=== PATIENT | female | born 1985 | race Caucasian/White ===

== ENCOUNTER 2020-06-01 14:05 | Emergency (ER) | payer OTHER ==
[~2020-06-01] VITALS: Ht 154.9 cm; Wt 61.2 kg
[2020-06-01 14:07] VITALS: BP 99/63; Ht 154.9 cm; Wt 61.2 kg
== END 2020-06-01 14:54 | disposition home or self-care (01) ==
LOC: ED 14:05
DX: R53.1 Weakness (principal); R05 Cough; J45.909 Unspecified asthma, uncomplicated; Z90.49 Acquired absence of other specified parts of digestive tract